=== PATIENT | male | born 1985 | race Caucasian/White ===

== ENCOUNTER 2020-08-10 00:17 | Emergency (ER) | payer OTHER ==
[~2020-08-10] VITALS: Ht 175.3 cm; Wt 99.8 kg
[2020-08-10] MEDS ORDERED: NORCO 5-325 TA1 EAC2 PO (01:10)
[2020-08-10 01:19] VITALS: BP 123/93
== END 2020-08-10 01:19 | disposition home or self-care (01) ==
LOC: M.ERS 00:17
DX: S50.12XA Contusion of left forearm, initial encounter (principal); F17.210 Nicotine dependence, cigarettes, uncomplicated; W10.8XXA Fall (on) (from) other stairs and steps, initial encounter; Y93.89 Activity, other specified; Y92.89 Other specified places as the place of occurrence of the external cause; Y99.8 Other external cause status

== ENCOUNTER 2021-05-28 06:55 | Emergency (ER) | payer OTHER ==
[~2021-05-28] VITALS: Ht 182.9 cm; Wt 81.7 kg
[~2021-05-28 06:55] MED LIST: NORCO 5-325 TA1 EAC2 PO
[2021-05-28 07:40] LABS: ABSOLUTE BASOPHILS 0.1 thou/uL (0.0-0.2); ABSOLUTE LYMPHOCYTES 1.5 thou/uL (0.8-5.3); ABSOLUTE MONOCYTES 1.2 thou/uL (0.0-1.2); ABSOLUTE NEUTROPHILS 15.6 thou/uL (1.6-8.1); BASOPHILS 0.4 %; HEMATOCRIT 43.3 % (42.0-52.0); HEMOGLOBIN 15.2 gm/dL (14.0-18.0); LYMPHOCYTES 8.3 %; MCH 31.4 pg (26.0-34.0); MCHC 35.2 g/dL (28.0-37.0); MONOCYTES 6.6 %; MPV 8.2 fl. (7.2-11.1); NUCLEATED RBCS 0 /100WBC; PLATELET COUNT* 432 thou/uL (150-400); POLYS 84.7 %; RBC 4.86 mil/uL (4.50-6.00); RDW-CV 13.5 % (10.5-14.5); WBC 18.5 thou/uL (4.0-11.0)
[2021-05-28 07:47] LABS: CALCIUM 9.6 mg/dL (8.5-10.1); CREATININE 1.6 mg/dL (0.6-1.3)
[2021-05-28 07:53] LABS: POTASSIUM 2.9 mmol/L (3.5-5.1)
[2021-05-28 07:59] LABS: ALBUMIN 4.4 g/dL (3.4-5.0); TOTAL BILIRUBIN 0.4 mg/dL (<0.1-1.0)
[2021-05-28] MEDS ORDERED: ZOFRAN ODT4 MG DISSOLVE (08:33)
[2021-05-28] MEDS ORDERED: CIPRO500 M1 PO (08:33)
[2021-05-28 08:43] VITALS: BP 100/61
== END 2021-05-28 08:44 | disposition home or self-care (01) ==
LOC: M.ERS 06:55
PROVIDERS: Family Medicine
DX: K52.9 Noninfective gastroenteritis and colitis, unspecified (principal); E87.6 Hypokalemia; R11.2 Nausea with vomiting, unspecified; R42 Dizziness and giddiness; R53.1 Weakness; Z86.018 Personal history of other benign neoplasm

== ENCOUNTER 2021-06-11 19:31 | Emergency (ER) | payer OTHER ==
[~2021-06-11] VITALS: Ht 175.3 cm; Wt 93.0 kg
[~2021-06-11 19:31] MED LIST changes: +CIPRO500 M1 PO; +ZOFRAN ODT4 MG DISSOLVE
[2021-06-11 20:20] LABS: ABSOLUTE BASOPHILS 0.1 thou/uL (0.0-0.2); ABSOLUTE EOSINOPHILS 0.2 thou/uL (0.0-0.7); ABSOLUTE LYMPHOCYTES 1.8 thou/uL (0.8-5.3); ABSOLUTE MONOCYTES 0.9 thou/uL (0.0-1.2); BASOPHILS 0.9 %; EOSINOPHILS 1.5 %; HEMATOCRIT 32.3 % (42.0-52.0); HEMOGLOBIN 10.9 gm/dL (14.0-18.0); LYMPHOCYTES 14.1 %; MCH 31.1 pg (26.0-34.0); MCHC 33.8 g/dL (28.0-37.0); MCV 91.9 fL (80.0-100.0); MONOCYTES 6.9 %; MPV 7.9 fl. (7.2-11.1); NUCLEATED RBCS 0 /100WBC; PLATELET COUNT* 277 thou/uL (150-400); POLYS 76.6 %; RBC 3.51 mil/uL (4.50-6.00); RDW-CV 13.7 % (10.5-14.5)
[2021-06-11 20:26] LABS: CALCIUM 8.7 mg/dL (8.5-10.1); CREATININE 1.1 mg/dL (0.6-1.3); POTASSIUM 3.6 mmol/L (3.5-5.1)
[2021-06-11 20:31] LABS: ALBUMIN 3.5 g/dL (3.4-5.0); TOTAL BILIRUBIN 0.5 mg/dL (<0.1-1.0); TOTAL PROTEIN 7.3 g/dL (6.4-8.2)
[2021-06-11 21:33] LABS: ESR (SEDRATE) 40 mm/hr (0-15)
[2021-06-11] MEDS ORDERED: CEPHALEXIN500 MG PO (22:03)
[2021-06-11] MEDS ORDERED: HYDROCODON-ACE1 EAC7 PO (22:08)
[2021-06-12 00:16] VITALS: BP 110/56
== END 2021-06-12 00:16 | disposition home or self-care (01) ==
LOC: M.ERS 19:31
PROVIDERS: Physician Assistant
DX: L03.116 Cellulitis of left lower limb (principal); L03.115 Cellulitis of right lower limb; C75.1 Malignant neoplasm of pituitary gland